=== PATIENT | male | born 1930 | race Caucasian/White ===

== ENCOUNTER 2017-05-22 06:51 | Inpatient (IN) ==
[2017-05-22] MEDS ORDERED: PANTOPRAZOLE 40 MG VIAL IV STA (07:09)
[2017-05-22] MEDS ORDERED: ONDANSETRON 4 MG/2 ML VIAL IV STA (07:09)
[2017-05-22] MEDS ORDERED: SODIUM CHLORIDE 0.9% 1,000 ML IV STA (07:09)
[2017-05-22] MEDS ORDERED: ONDANSETRON 4 MG/2 ML VIAL ONE (07:52)
[2017-05-22] MEDS ORDERED: PANTOPRAZOLE 40 MG VIAL IV ONE (07:52)
[2017-05-22 08:05] LABS: Basophils % 0.3 % (0.0-0.8); Eosinophils % 0.1 % (0.00-10.9); Hematocrit 48.5 VOL% (42.0-52.0); Hemoglobin 14.3 GM/DL (14.0-18.0); Immature Granulocytes % 0.6 %; Immature Granulocytes Absolute 0.09 #; Lymphocytes # 0.8 10*3/uL (1.4-4.0); Lymphocytes % 5.6 % (21.2-54.2); Mean Corpuscular HGB Conc 29.5 GM/DL (32-36); Mean Corpuscular Hemoglobin 24 PG (27-34); Mean Corpuscular Volume 80.4 FL (87-102); Mean Platelet Volume 11.1 FL (9.6-12.0); Monocytes # 0.8 10*3/uL (0.11-0.8); Monocytes % 5.8 % (1.7-12.7); NRBC # 0.21 10*3/uL; Neutrophils # 12.5 10*3/uL (1.4-7.4); Neutrophils % 87.6 % (38.7-73.9); Platelet Count 238 T/CUMM (130-400); Red Blood Count 6.03 MC/CUMM (3.8-5.5); Red Cell Distribution Width 22.7 % (9.3-17.3); White Blood Count 14.3 T/CUMM (4-12)
[2017-05-22 09:06] LABS: Alanine Aminotransferase 34 U/L (16-61); Albumin 1.9 G/DL (3.4-5.0); Alkaline Phosphatase 114 U/L (45-117); Aspartate Amino Transferase 13 U/L (0-37); Blood Urea Nitrogen 115 MG/DL (7-18); Calcium 7.8 MG/DL (8.5-10.1); Glucose 117 MG/DL (74-106); Osmolality,Calculated 374.1 MOS/KG (273-304); Potassium 4.3 MMOL/L (3.5-5.1); Total Protein 5.7 G/DL (6.4-8.3)
[2017-05-22 09:07] LABS: Sodium > 171 MMOL/L (136-145)
[2017-05-22 09:32] LABS: Platelet Estimate Normal
[2017-05-22 10:20] LABS: Amorphous Crystals,Urine Occasional /HPF (Few); Apearance,Urine Slightly Hazy (Clear); Bilirubin,Urine Negative (Negative); Blood, Urine Large mg/dL (Negative); Glucose,Urine (UA) Negative (Negative); Hyaline Casts,Urine 6 /LPF (0-3); Ketones,Urine Negative (Negative); Mucus,Urine Occasional /LPF (Occasional); Nitrite,Urine Negative (Negative); Protein,Urine Negative; RBC,Urine 124 /HPF (0-4); Squamous Epithelial Cell,Urine Occasional /HPF (0-10); Urine Color Yellow (Yellow); Urine Specific Gravity 1.017 (1.001-1.035); WBC,Urine 17 /HPF (0-6)
[2017-05-22] MEDS: DEXTROSE 5% 1,000 ML IV SCH ×2 (11:14→19:45)
[2017-05-22 11:28] LABS: Hemoglobin 11.7 GM/DL (14.0-18.0)
[2017-05-22 11:30] LABS: Hematocrit 40.2 VOL% (42.0-52.0)
[2017-05-22] MEDS ORDERED: POLYETHYLENE GLYCOL 3350/ELECTROLYTES 4,000 ML BOTTLE NG ONE (13:00)
[2017-05-22] MEDS: BISACODYL 5 MG TABLET NG SCH ×2 (14:30→21:02)
[2017-05-22] MEDS ORDERED: traZODone 50 MG TABLET PO SCH (14:30)
[2017-05-22 15:12] LABS: Blood Urea Nitrogen 120 MG/DL (7-18); Calcium 7.6 MG/DL (8.5-10.1); Glucose 212 MG/DL (74-106); Osmolality,Calculated 380.1 MOS/KG (273-304); Potassium 4.5 MMOL/L (3.5-5.1)
[2017-05-22 15:14] LABS: Sodium > 171 MMOL/L (136-145)
[2017-05-22] MEDS ORDERED: NOREPINEPHRINE 4 MG/4 ML VIAL IV ONE (17:23)
[2017-05-22] MEDS: NOREPINEPHRINE 8 MG in SODIUM CHLORIDE 0.9% 242 ML IV SCH (17:30)
[2017-05-22 20:17] LABS: Hematocrit 37.6 VOL% (42.0-52.0); Hemoglobin 11.1 GM/DL (14.0-18.0)
[2017-05-22] MEDS: PANTOPRAZOLE 40 MG VIAL IV SCH (20:59)
[2017-05-22] MEDS: DONEPEZIL 10 MG TABLET PO SCH (21:00)
[2017-05-22] MEDS: traZODone 50 MG TABLET PO SCH (21:02)
[2017-05-22] MEDS: MEMANTINE 10 MG TABLET PO SCH (21:02)
[2017-05-23] MEDS: DEXTROSE 5% 1,000 ML IV SCH ×2 (03:36→12:45)
[2017-05-23] MEDS: NOREPINEPHRINE 8 MG in SODIUM CHLORIDE 0.9% 242 ML IV SCH ×2 (03:37→12:32)
[2017-05-23] MEDS: BISACODYL 5 MG TABLET NG SCH (05:45)
[2017-05-23 05:51] LABS: Basophils # 0.1 10*3/uL (0.0-0.2); Basophils % 0.4 % (0.0-0.8); Eosinophils % 0.1 % (0.00-10.9); Hematocrit 37.3 VOL% (42.0-52.0); Hemoglobin 11.2 GM/DL (14.0-18.0); Immature Granulocytes Absolute 0.16 #; Lymphocytes # 0.4 10*3/uL (1.4-4.0); Lymphocytes % 2.5 % (21.2-54.2); Mean Corpuscular Hemoglobin 24 PG (27-34); Mean Corpuscular Volume 79.9 FL (87-102); Mean Platelet Volume 11.7 FL (9.6-12.0); Monocytes % 6.4 % (1.7-12.7); NRBC # 0.76 10*3/uL; Neutrophils # 14.1 10*3/uL (1.4-7.4); Neutrophils % 89.6 % (38.7-73.9); Platelet Count 188 T/CUMM (130-400); Red Blood Count 4.67 MC/CUMM (3.8-5.5); White Blood Count 15.7 T/CUMM (4-12)
[2017-05-23 05:59] LABS: INR 1.2; PT Patient Result 12.2 SECS
[2017-05-23 06:01] LABS: Calcium 7.2 MG/DL (8.5-10.1); Magnesium 2.9 MG/DL (1.8-2.4); Osmolality,Calculated 369.3 MOS/KG (273-304); Potassium 3.7 MMOL/L (3.5-5.1)
[2017-05-23 06:50] LABS: Band Neutrophils 9 % (0-10); Hypochromasia 1+; Lymphocytes 4 % (20-55); Macrocytosis 1+; Nucleated Red Blood Cells 8 (0-5); Platelet Estimate Adequate; Polychromasia Slight; Segmented Neutrophils 79 % (50-85); Total Cells Counted 100
[2017-05-23] MEDS: PANTOPRAZOLE 40 MG VIAL IV SCH ×2 (08:49→20:36)
[2017-05-23] MEDS: MEMANTINE 10 MG TABLET PO SCH ×2 (08:53→20:36)
[2017-05-23] MEDS ORDERED: DOCUSATE SODIUM 100 MG CAPSULE PO SCH (09:00)
[2017-05-23] MEDS ORDERED: FOLIC ACID 1 MG TABLET PO SCH (09:00)
[2017-05-23] MEDS ORDERED: MULTIVITAMIN (CENTRUM) TABLET PO SCH (09:00)
[2017-05-23] MEDS ORDERED: PIPERACILLIN/TAZOBACTAM 3,375 MG in SODIUM CHLORIDE 0.9% 100 ML IV SCH (11:00)
[2017-05-23] MEDS ORDERED: NOREPINEPHRINE 4 MG/4 ML VIAL IV ONE (11:37)
[2017-05-23] MEDS ORDERED: LORazepam 2 MG/1 ML VIAL IV PRN (15:09)
[2017-05-23] MEDS ORDERED: MORPHINE 2 MG/1 ML SYRINGE IV PRN (15:09)
[2017-05-23] MEDS: DONEPEZIL 10 MG TABLET PO SCH (20:35)
[2017-05-23] MEDS: traZODone 50 MG TABLET PO SCH (20:35)
[2017-05-23] MEDS ORDERED: MAGNESIUM CITRATE 300 ML BOTTLE NG ONE (21:00)
[2017-05-23] MEDS ORDERED: MAGNESIUM CITRATE 300 ML BOTTLE PO ONE (21:00)
[2017-05-25 05:36] LABS: Basophils % 0.1 % (0.0-0.8); Hematocrit 33.6 VOL% (42.0-52.0); Hemoglobin 10.4 GM/DL (14.0-18.0); Immature Granulocytes % 1.8 %; Immature Granulocytes Absolute 0.26 #; Lymphocytes # 0.3 10*3/uL (1.4-4.0); Lymphocytes % 2.3 % (21.2-54.2); Mean Corpuscular Hemoglobin 24 PG (27-34); Mean Corpuscular Volume 76.5 FL (87-102); Monocytes # 0.2 10*3/uL (0.11-0.8); Monocytes % 1.2 % (1.7-12.7); NRBC # 0.34 10*3/uL; Neutrophils # 13.8 10*3/uL (1.4-7.4); Neutrophils % 94.6 % (38.7-73.9); Platelet Count 61 T/CUMM (130-400); Red Blood Count 4.39 MC/CUMM (3.8-5.5); Red Cell Distribution Width 21.9 % (9.3-17.3); White Blood Count 14.6 T/CUMM (4-12)
[2017-05-25 06:08] LABS: Calcium 7.5 MG/DL (8.5-10.1); Potassium 3.6 MMOL/L (3.5-5.1)
[2017-05-25 06:24] LABS: Band Neutrophils 10 % (0-10); Hypochromasia 1+; Lymphocytes 1 % (20-55); Metamyelocytes 2 %; Segmented Neutrophils 82 % (50-85); Total Cells Counted 100
[2017-05-25 06:25] LABS: Microcytosis 1+; Platelet Estimate Decreased; Target Cells Slight
[2017-05-25 06:26] LABS: Ovalocytes Slight
[2017-05-25 12:11] VITALS: BP 100/64
== END 2017-05-25 15:19 | disposition hospice, home (50) | DRG 377 ==
LOC: N.ED 06:51 → N.EDINP 09:39 → N.ICU 10:15 → N.2E 05-23 19:54
PROVIDERS: ADMIT Internal Medicine; ATTEND Internal Medicine